=== PATIENT | female | born 1950 | race Caucasian/White ===

== ENCOUNTER → 2017-01-03 | Outpatient (REF) | payer MEDICARE | LOC: M LAB REF 16:37 | PROVIDERS: ATTEND Internal Medicine Medical Oncology | DX: C50.919 Malignant neoplasm of unspecified site of unspecified female breast (principal) ==

== ENCOUNTER → 2017-03-07 | Outpatient (CLI) | payer MEDICARE ==
--- NOTE | 2017-03-08 10:27 | REP ---
PET/CT: HISTORY: Restaging breast carcinoma. Prior history of colon carcinoma and melanoma. Status post chemo and radiation for breast and colon malignancies. Left-sided pulmonary nodule. COMPARISONS: No comparison chest CTs or chest x-rays available. TECHNIQUE: 76 minutes following the intravenous injection of a 9.5 mCi dose of F-18 FDG, three-dimensional PET scintigraphy is acquired from the skull base to the proximal thighs. Triplanar noncontrast CT scanning is acquired through the same anatomic range for attenuation correction, and image registration with scan parameters optimized to minimize radiation exposure to the patient. PET scintigraphy and CT datasets were fused and displayed on a workstation with multiplanar and projection display capability. PET/CT FINDINGS: There is an 18 mm supraclavicular lymph node on the left which shows borderline FDG accumulation, maximum standard uptake value 1.9. There is mildly hypermetabolic uptake in a low density left thyroid nodule at the thoracic inlet just to the left of the tracheoesophageal groove. Maximum standard uptake value 3.2 here. This low density thyroid lesion is visible in retrospect on the June [address] study. There is hypermetabolic left axillary lymphadenopathy with maximum standard uptake value of 5.6 in a left axillary lymph node, which measures 1.0 x 1.3 cm. There are two other left axillary lymph nodes a little more caudally which show FDG accumulation mildly hypermetabolic, SUV 2.5. There are surgical clips in the left axilla. There is a right [id number]. There is a hypermetabolic lung nodule in the left upper lobe near the apex, maximum standard uptake value 6.4. The nodule measures 1 cm in greatest diameter. There are multiple noncalcified pulmonary nodules in a metastatic pattern. These are all smaller and show fairly visible lobe levels of FDG accumulation. These are consistent with pulmonary metastatic lesions. There is non-hypermetabolic uptake in the left breast soft tissues adjacent to some surgical clips and calcifications. There is mildly hypermetabolic uptake in a periportal lymph node with maximum standard uptake values 4.0. This lymph node measures 16 mm in greatest diameter. No other abnormal hypermetabolic uptake is seen in the abdomen or pelvis. There is a small subcutaneous mignon focus in the left side of the abdominal panniculus with maximum standard uptake value 5.4. This measures only 1 cm. No other abnormal left EG accumulation. IMPRESSION: Hypermetabolic uptake consistent with metastatic lymph node disease involving left supraclavicular, left axillary, periportal lymph node chains. There is a pattern of multiple pulmonary nodules showing some FDG uptake compatible with hematogenous pulmonary metastases. There is also mildly hypermetabolic uptake in a left thyroid nodule, which is likely partially cystic and which was visible on remote prior CT. This is of uncertain significance. Signed by Merrick Pineda MD 03/08/2017 02:09 P
== END ==
LOC: M PLARAD 15:57
PROVIDERS: ATTEND Internal Medicine Pulmonary Disease
DX: R91.8 Other nonspecific abnormal finding of lung field (principal); C50.919 Malignant neoplasm of unspecified site of unspecified female breast; C78.00 Secondary malignant neoplasm of unspecified lung; R59.0 Localized enlarged lymph nodes; E65 Localized adiposity; Z91.041 Radiographic dye allergy status; Z85.820 Personal history of malignant melanoma of skin; Z85.038 Personal history of other malignant neoplasm of large intestine
CPT/HCPCS: 78815; A9552

== ENCOUNTER → 2017-03-22 | Outpatient (CLI) | payer MEDICARE ==
[~2017-03-22] MED LIST: LIDOCAINE 1% MDV 20ML VIAL As Ordered ONE
--- NOTE | 2017-03-22 15:27 | REP ---
CT GUIDED LEFT CHEST WALL NODULE BIOPSY: The procedure was performed under the direct supervision of Dr. Pineda. The patient has a history of a hypermetabolic uptake consistent with metastatic lymph node disease seen on a previous PET scan dated 03/07/2017. A hypermetabolic nodule in the left chest wall was referred for biopsy. The risks and benefits of the procedure were explained to the patient and informed consent was obtained. The left chest wall nodule was localized using CT guidance. The skin was prepped and draped in a sterile fashion. 1% Xylocaine was used as a local anesthetic. Using CT guidance, a 19-20 gauge coaxial needle biopsy system was inserted and advanced into the nodule. Five core biopsy samples were obtained and sent to the lab. The patient tolerated the procedure well and there were no immediate complications. After the appropriate amount of monitored convalescence the patient was discharged from the department. Reviewed by CHAU Peoples 03/23/2017 04:10 PEdited and Signed by Merrick Pineda MD 03/23/2017 04:51 P
== END | disposition home or self-care (01) ==
LOC: M RADPRO 10:13
PROVIDERS: ATTEND Internal Medicine Pulmonary Disease
DX: C76.1 Malignant neoplasm of thorax (principal); I48.91 Unspecified atrial fibrillation; G47.33 Obstructive sleep apnea (adult) (pediatric); M06.00 Rheumatoid arthritis without rheumatoid factor, unspecified site; E11.9 Type 2 diabetes mellitus without complications; Z79.899 Other long term (current) drug therapy; Z79.01 Long term (current) use of anticoagulants; Z79.84 Long term (current) use of oral hypoglycemic drugs; Z79.52 Long term (current) use of systemic steroids; Z88.8 Allergy status to other drugs, medicaments and biological substances; Z85.030 Personal history of malignant carcinoid tumor of large intestine; Z85.3 Personal history of malignant neoplasm of breast; Z92.21 Personal history of antineoplastic chemotherapy; Z92.3 Personal history of irradiation; Z95.0 Presence of cardiac pacemaker; Z96.9 Presence of functional implant, unspecified

== ENCOUNTER → 2017-03-29 | Outpatient (REF) | payer MEDICARE | LOC: M LAB REF 13:28 | PROVIDERS: ATTEND Internal Medicine Medical Oncology | DX: C50.919 Malignant neoplasm of unspecified site of unspecified female breast (principal) ==

== ENCOUNTER → 2017-05-29 | Outpatient (REF) | payer MEDICARE ==
[2017-05-29 18:05] LABS: INR 2.64
== END ==
LOC: M LAB REF 17:41
PROVIDERS: ATTEND Internal Medicine Medical Oncology
DX: C50.919 Malignant neoplasm of unspecified site of unspecified female breast (principal); I48.91 Unspecified atrial fibrillation; Z51.81 Encounter for therapeutic drug level monitoring; Z79.01 Long term (current) use of anticoagulants

== ENCOUNTER → 2017-08-18 | Outpatient (REF) | payer MEDICARE | LOC: M LAB REF 13:19 | PROVIDERS: ATTEND Surgery | DX: L59.8 Other specified disorders of the skin and subcutaneous tissue related to radiation (principal) | CPT/HCPCS: 11042; 88305; 88342; G0463 ==

== ENCOUNTER → 2017-08-25 | Outpatient (REF) | payer MEDICARE | LOC: M LAB REF 17:23 | PROVIDERS: ATTEND Surgery | DX: D23.5 Other benign neoplasm of skin of trunk (principal) ==

== ENCOUNTER → 2017-08-29 | Outpatient (REF) | payer MEDICARE ==
[2017-08-29 19:35] LABS: PERCENT SATURATION 18.6 % (13.2-45.0)
== END ==
LOC: M LAB REF 17:29
PROVIDERS: ATTEND Internal Medicine Medical Oncology
DX: C50.919 Malignant neoplasm of unspecified site of unspecified female breast (principal); D64.9 Anemia, unspecified

== ENCOUNTER → 2017-11-23 | Outpatient (REF) | payer MEDICARE ==
[2017-11-23 14:53] LABS: FERRITIN 27 NG/ML (8-252); IRON (FE) 84 UG/DL (50-170); PERCENT SATURATION 18.7 % (13.2-45.0); TOTAL IRON BINDING CAPACITY 449 UG/DL (250-450)
== END ==
LOC: M LAB REF 13:42
DX: C50.919 Malignant neoplasm of unspecified site of unspecified female breast (principal)
CPT/HCPCS: 83550

== ENCOUNTER → 2018-01-18 | Outpatient (REF) | payer MEDICARE ==
[2018-01-19 11:05] LABS: CA15-3 ANTIGEN 31.4 U/ML (<32.4)
== END ==
LOC: M LAB REF 16:39
DX: C50.919 Malignant neoplasm of unspecified site of unspecified female breast (principal)
CPT/HCPCS: 86300

== ENCOUNTER → 2018-05-01 | Outpatient (CLI) | payer MEDICARE | LOC: M PLARAD 14:07 | DX: C50.412 Malignant neoplasm of upper-outer quadrant of left female breast (principal) | CPT/HCPCS: 78815 ==

== ENCOUNTER → 2018-06-06 | Outpatient (REF) | payer MEDICARE ==
[2018-06-06 18:56] LABS: FERRITIN 25 NG/ML (8-252); IRON (FE) 74 UG/DL (50-170); PERCENT SATURATION 18.9 % (13.2-45.0); TOTAL IRON BINDING CAPACITY 391 UG/DL (250-450)
== END ==
LOC: M LAB REF 17:08
DX: D64.9 Anemia, unspecified (principal); C77.8 Secondary and unspecified malignant neoplasm of lymph nodes of multiple regions; C78.02 Secondary malignant neoplasm of left lung; C78.01 Secondary malignant neoplasm of right lung; C50.412 Malignant neoplasm of upper-outer quadrant of left female breast
CPT/HCPCS: 83550

== ENCOUNTER → 2018-11-23 | Outpatient (REF) | payer MEDICARE ==
[~2018-11-23] MED LIST changes: +ALLO100T PO; +AMIO200T PO; +ARAV1TAB PO; +ASPI1TAB PO; +ASPI81TA85 PO; +CALC-210 PO; +CALCTAB44 PO; +GABA600T4 PO; +GLIP5TAB8 PO; +GLYB5TA PO; +IBRA100C PO; +IRON325T7 PO; +JANT1TAB PO; +JANT5TAB PO; +KLOR20TA42 PO; -LIDOCAINE 1% MDV 20ML VIAL As Ordered ONE; +LISI-542 PO; +METF10004 PO; +METO100T5 PO; +MULT1TAB8 PO; +MULTCAP PO; +OMEP-221 PO; +OMEP40CA2 PO; +POTA1TAB14 PO; +PRAV40TA2 PO; +SULF50TA PO; +SYNT50TA PO; +TORS20TA2 PO
== END ==
LOC: M LAB REF 13:46
PROVIDERS: ATTEND Internal Medicine Hematology & Oncology
DX: C50.412 Malignant neoplasm of upper-outer quadrant of left female breast (principal); C77.8 Secondary and unspecified malignant neoplasm of lymph nodes of multiple regions; C78.02 Secondary malignant neoplasm of left lung; C78.1 Secondary malignant neoplasm of mediastinum; C76.1 Malignant neoplasm of thorax
CPT/HCPCS: 15271; 87070; 87077; 87186; 87205; Q4187

== ENCOUNTER → 2018-12-18 | Outpatient (CLI) | payer MEDICARE ==
--- NOTE | 2018-12-18 16:57 | REP ---
PET/CT: History: Restaging melanoma. Melanoma left lower leg. History of left breast carcinoma with chest wall metastatic disease. Comparisons: Comparison PET-CT study May 01, 2018 as well as March 07, [address] . [address] abdomen and pelvis from [facility] November 13, 2018 describes interval development of nonspecific retroperitoneal adenopathy. TECHNIQUE: 56 minutes following the intravenous injection of a 9.02 mCi dose of F-18 FDG, three-dimensional PET scintigraphy is acquired from the skull base to the proximal thighs. Triplanar noncontrast CT scanning is acquired through the same anatomic range for attenuation correction, and image registration with scan parameters optimized to minimize radiation exposure to the patient. PET scintigraphy and CT datasets were fused and displayed on a workstation with multiplanar and projection display capability. PET/CT Findings: Hypermetabolic uptake is noted in two adjacent small left supraclavicular lymph nodes. Maximum standard uptake value is 4.77. The larger of these two lymph nodes measure 17 x 13 mm. The smaller measures 12 mm. Head and neck soft tissues are otherwise unremarkable. A 6 mm left upper lobe nodule is again noted on accompanying CT study. This was previously hypermetabolic. It is not hypermetabolic today. Maximum standard uptake value is 0.9. No other hypermetabolic intrathoracic uptake is seen. There is mildly hypermetabolic uptake in the inferolateral aspect of the left breast dermal and subcutaneous soft tissues with maximum standard uptake value 3.59. This area contains dystrophic calcifications and appears to be postoperative change. There may be a chronic defect in the overlying skin. This should be correlated clinically. It appears to be similar to the changes seen here on April of 2018. There is very mildly hypermetabolic uptake in a portocaval lymph node in the upper abdomen, maximum standard uptake value 3.22. There is borderline mignon uptake in a left periaortic lymph node in the retroperitoneum with maximum standard uptake value 2.78. These last two lymph nodes each measure 1.5 cm in greatest diameter. No other abnormal hypermetabolic uptake is seen in the abdomen or pelvis. There is a small cystic area in the left groin again noted without observable FDG accumulation. This is a little larger than previous, but not new. It measures 2.4 cm in greatest diameter. Impression: Hypermetabolic uptake is seen today in two adjacent left supraclavicular lymph nodes, which is considered suspicious. There is equivocal mildly increased uptake in the left inferolateral breast at what may be an area of skin breakdown or postoperative change. There is mildly increased uptake in a portocaval lymph node in the upper abdomen and in left periaortic lymph node of uncertain significance. Electronically Signed by Merrick Pineda MD 12/18/2018 05:51 P
== END ==
LOC: M PLARAD 07:27
PROVIDERS: ATTEND Internal Medicine Hematology & Oncology
DX: C50.412 Malignant neoplasm of upper-outer quadrant of left female breast (principal); C78.01 Secondary malignant neoplasm of right lung; C78.02 Secondary malignant neoplasm of left lung; R59.9 Enlarged lymph nodes, unspecified; Z85.3 Personal history of malignant neoplasm of breast
CPT/HCPCS: 78816; A9552